=== PATIENT | male | born 1970 | race Caucasian/White ===

== ENCOUNTER 2021-02-03 08:09 | Emergency (ER) | payer OTHER ==
[2021-02-03] MEDS ORDERED: Adacel Vial IM ONE ×2 (08:31→08:55)
[2021-02-03] MEDS ORDERED: Zosyn 3.375 GM Vial 3.375 GM in Sodium Chloride 100ML MINI-BAG PLUS 100 ML IV ONE (08:32)
[2021-02-03] MEDS ORDERED: VANCOMYCIN 2 GRAM/400 ML BAG 2 GM/400 ML PIGGYBACK IV ONE ×2 (08:32→08:54)
--- NOTE | 2021-02-03 08:40 | ERPHSYRPT ---
- History of Present Illness Time Seen by Provider: 02/03/21 08:11 Source: patient Exam Limitations: no limitations Patient Subjective Stated Complaint: Abscess Triage Nursing Assessment: Patient ambulated back to ED and transferred self to bed. Patient A+O X 3. Patient's skin pink, warm and dry. Patient complains of abscess to left mid bosch. Patient states this past he noticed redness and blistering to left mid bosch. Patient states he woke up Tuesday with a raised area on mid bosch with redness. [facility] and given IM and PO atb. Patient states the area is looking worse. Patient has raised area with soft middle noted to left mid bosch. Patient's left lower leg noted to be red and swollen. Physician History: 51 years old male with history of diabetes mellitus presented in the ER with chief complaint of left lower extremity swelling for the last 5 days. Patient reported initially started as a few blisters in the mid bosch area and over the course of couple of days got worse with a raised bump and gradually redness spreading around and now involves the entire left bosch area. Moderate intensity sharp pain with palpation, ambulation and better with being still. No fever or chills reported. Questionable history of spider bite. Was seen outpatient with p.o. and IM antibiotics 3 days ago but symptoms seems to be getting worse. Denies any history of MRSA in the past. Timing/Duration: day(s) (5), constant, gradual onset, worse Quality: painful Severity: moderate Location: extremities Possible Causes: no cause identified Modifying Factors: Improves With: other Associated Symptoms: blisters, rash, swelling/mass/lumps Allergies/Adverse Reactions: No Known Drug Allergies Allergy (Unverified 02/03/21 08:18) Hx Influenza Vaccination/Date Given: No Hx Pneumococcal Vaccination/Date Given: No Immunizations Up to Date: Yes Travel Risk - International Travel Have you traveled outside of the country in past 3 weeks: No - Coronavirus Screening Are you exhibiting any of the following symptoms?: No Close contact with a COVID-19 positive Pt in past 14-21 Days: No - Vaccine Status Have you recieved a Covid-19 vaccination: Yes 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 - Vaccination Dates Date of 2cond Vaccination (if applicable): N/A - Review of Systems Constitutional: No Symptoms Eyes: No Symptoms Ears, Nose, & Throat: No Symptoms Respiratory: No Symptoms Cardiac: No Symptoms Abdominal/Gastrointestinal: No Symptoms Genitourinary Symptoms: No Symptoms Skin: Cellulitis, Induration, Rash, Skin Lesions Neurological: No Symptoms Psychological: No Symptoms Endocrine: No Symptoms Hematologic/Lymphatic: No Symptoms Immunological/Allergic: No Symptoms - Past Medical History Pertinent Past Medical History: Yes Neurological History: No Pertinent History ENT History: No Pertinent History Cardiac History: Hypertension Respiratory History: No Pertinent History Endocrine Medical History: Diabetes Type II, Hypothyroidism Musculoskeletal History: No Pertinent History GI Medical History: No Pertinent History History: No Pertinent History Psycho-Social History: No Pertinent History Male Reproductive Disorders: No Pertinent History - Past Surgical History Past Surgical History: No Neuro Surgical History: No Pertinent History Cardiac: No Pertinent History Respiratory: No Pertinent History Gastrointestinal: No Pertinent History Genitourinary: No Pertinent History Musculoskeletal: No Pertinent History Male Surgical History: No Pertinent History - Social History Smoking Status: Never smoker Exposure to second hand smoke: Yes Drug Use: none Patient Lives Alone: No - Nursing Vital Signs Nursing Vital Signs: Initial Vital Signs Temperature 98.1 F 02/03/21 08:19 Pulse Rate 102 H 02/03/21 08:19 Respiratory Rate 18 02/03/21 08:19 Blood Pressure 167/90 02/03/21 08:19 O2 Sat by Pulse Oximetry 98 02/03/21 08:19 Pain Scale Pain Intensity 5 - Physical Exam General Appearance: no apparent distress, alert Eye Exam: PERRL/EOMI, eyes nml inspection Ears, Nose, Throat Exam: normal ENT inspection, pharynx normal Neck Exam: normal inspection, non-tender, supple, full range of motion Respiratory Exam: normal breath sounds, lungs clear Cardiovascular Exam: regular rate/rhythm, normal heart sounds Gastrointestinal/Abdomen Exam: soft Back Exam: normal inspection, normal range of motion Extremity Exam: swelling (Diffuse swelling left bosch area with raised bump in the middle. Erythema spreading to the calf. Warm and mildly tender to touch. Raised area has positive fluctuation. Distal neurovascular well intact. Does not involve ankle or knee joint.) Neurologic Exam: alert, oriented x 3, cooperative Skin Exam: normal color, rash SpO2 Interpretation: normal SpO2: 98 O2 Delivery: Room Air Procedures - Incision and Drainage Time of Procedure: 10:24 Site: Left bosch Anesthesia: 1% lidocaine w/epi cc's of anesthesia: other (7cc) Blade Size: 11 I & D Procedure: betadine prep, sterile dressing applied, culture obtained, ot her (Gauze) Results: large amount pus Progress: Tolerated procedure very well Ordered Tests: Active Orders 24 hr Category Date Time Status IV Insertion STAT Care 02/03/21 08:31 Active LOWER LEG Stat Exams 02/03/21 09:07 Completed BLOOD CULTURE Stat Lab 02/03/21 08:45 Received CBC W DIFF Stat Lab 02/03/21 08:35 Completed CMP Stat Lab 02/03/21 08:35 Completed Lactic Acid Stat Lab 02/03/21 08:31 Completed Medication Summary Generic Name Dose Route Start Last Admin Trade Name Freq PRN Reason Stop Dose Admin Vancomycin HCl 2 gm in 400 mls @ 133.333 mls/hr 02/03/21 08:32 02/03/21 09:45 Vancomycin 2 Gram/400 Ml Bag IV 02/03/21 11:31 133.333 mls/hr STAT ONE 133.33 mls/hr Administration Sodium Chloride 1,000 mls @ 100 mls/hr 02/03/21 08:45 02/03/21 09:04 Sodium Chloride 0.9% 1000 Ml IV 03/05/21 08:44 100 mls/hr .Q10H MEHRDAD Administration Discontinued Medications Generic Name Dose Route Start Last Admin Trade Name Freq PRN Reason Stop Dose Admin Diphtheria/Tetanus/Acell Pertussis 0.5 ml 02/03/21 08:31 02/03/21 09:08 Adacel Vial IM 02/03/21 08:32 0.5 ml .ONCE ONE Administration Diphtheria/Tetanus/Acell Pertussis Confirm 02/03/21 08:55 Adacel Vial Administered 02/03/21 08:56 Dose 0.5 ml IM .STK-MED ONE Piperacillin Sod/Tazobactam 100 mls @ 200 mls/hr 02/03/21 08:32 02/03/21 09:06 Sod 3.375 gm/ Sodium Chloride IV 02/03/21 09:01 200 mls/hr STAT ONE Administration Vancomycin HCl Confirm 02/03/21 08:54 Vancomycin 2 Gram/400 Ml Bag Administered 02/03/21 08:55 Dose 2 gm in 400 mls @ ud IV .STK-MED ONE Sodium Chloride Confirm 02/03/21 08:56 Sodium Chloride 100ml Mini-Bag Plus Administered 02/03/21 08:57 Dose 100 mls @ ud IV .STK-MED ONE Lidocaine/Epinephrine Confirm 02/03/21 10:04 Xylocaine 1%/Epi 1:[id number] Mdv 20 Ml Administered 02/03/21 10:05 Dose 5 ml .ROUTE .STK-MED ONE Piperacillin Sod/Tazobactam Sod Confirm 02/03/21 08:54 Zosyn 3.375 Gm Vial Administered 02/03/21 08:55 Dose 3.375 gm IV .STK-MED ONE Lab/Rad Data: Laboratory Result Diagrams 02/03/21 08:35 02/03/21 08:35 Laboratory Results 02/03/21 02/03/21 02/03/21 Range/Units 08:35 08:35 08:31 WBC 14.2 H (4.0-10.5) K/mm3 RBC 4.98 (4.1-5.6) M/mm3 Hgb 14.1 (12.5-18.0) gm/dl Hct 44.7 (42-50) % MCV 89.8 (78-100) fl MCH 28.3 (26-32) pg MCHC 31.5 L (32-36) g/dl RDW 14.1 H (11.5-14.0) % Plt Count 265 (150-450) K/mm3 MPV 11.1 H (7.5-11.0) fl Gran % 77.5 H (36.0-66.0) % Eos # (Auto) 0.15 (0-0.5) Absolute Lymphs (auto) 1.79 (1.0-4.6) Absolute Monos (auto) 1.21 (0.0-1.3) Lymphocytes % 12.6 L (24.0-44.0) % Monocytes % 8.5 (0.0-12.0) % Eosinophils % 1.1 (0.00-5.0) % Basophils % 0.3 (0.0-0.4) % Absolute Granulocytes 11.04 H (1.4-6.9) Basophils # 0.04 (0-0.4) Sodium 141 (137-145) mmol/L Potassium 4.2 (3.5-5.1) mmol/L Chloride 104 (98-107) mmol/L Carbon Dioxide 24 (22-30) mmol/L Anion Gap 16.2 H (5-15) MEQ/L BUN 31 H (9-20) mg/dL Creatinine 1.31 H (0.66-1.25) mg/dL Estimated GFR > 60.0 ML/MIN Glucose 171 H (74-106) mg/dL Lactic Acid 1.3 (0.4-2.0) Calcium 9.8 (8.4-10.2) mg/dL Total Bilirubin 0.40 (0.2-1.3) mg/dL AST 26 (17-59) U/L ALT 37 (0-50) U/L Alkaline Phosphatase 166 H (38-126) U/L Serum Total Protein 7.5 (6.3-8.2) g/dL Albumin 4.4 (3.5-5.0) g/dL - Progress Progress: improved, pain not gone completely, re-examined Progress Note: 02/03/21 10:26 51 years old with left lower extremity swelling after possible spider bite and abscess. Patient has white count of 14, lactate of 1.3, blood sugar in 170s and mildly elevated creatinine. Started on fluids and given Zosyn and vancomycin. Discussed with Dr. Honeycutt, recommended I&D which is done. Patient will be kept n.p.o. until Dr. Nava can can see him this afternoon and if needed patient will be taken to the OR for further exploration. Patient would be admitted to medical service with Dr. Kelly. Discussed with : Elyse Alvarado Will see patient in: hospital (observation) Counseled pt/family regarding: lab results, diagnosis, rad results - Departure Departure Disposition: Observation Clinical Impression: Cellulitis and abscess of left leg, DAVID (acute kidney injury) Spider bite Qualifiers: Encounter type: initial encounter Injury intent: accidental or unintentional Qualified Code(s): T63.301A - Toxic effect of unspecified spider venom, accidental (unintentional), initial encounter Condition: Stable Critical Care Time: No Referrals: MARCOS KELLY [Primary Care Provider] -
[2021-02-03] MEDS ORDERED: Sodium Chloride 0.9% 1000 ML 1,000 ML IV SCH (08:45)
[2021-02-03] MEDS ORDERED: Sodium Chloride 0.9% 1000 ML 1,000 ML ONE (08:54)
[2021-02-03] MEDS ORDERED: Zosyn 3.375 GM Vial IV ONE (08:54)
[2021-02-03] MEDS ORDERED: Sodium Chloride 100ML MINI-BAG PLUS 100 ML IV ONE (08:56)
[2021-02-03 08:58] LABS: Absolute Neutrophil Ct (ANC) 11.04 (1.4-6.9); BASOPHIL % 0.3 % (0.0-0.4); Basophil (Absolute #) 0.04 (0-0.4); Eosinophil % 1.1 % (0.00-5.0); Eosinophil (Absolute #) 0.15 (0-0.5); Hematocrit 44.7 % (42-50); Hemoglobin 14.1 gm/dl (12.5-18.0); Lymphocyte (Absolute #) 1.79 (1.0-4.6); Lymphocytes % 12.6 % (24.0-44.0); Mean Cell Volume 89.8 fl (78-100); Mean Corpuscular Hemoglobin 28.3 pg (26-32); Mean Corpuscular Hgb Concent. 31.5 g/dl (32-36); Mean Platelet Volume 11.1 fl (7.5-11.0); Monocyte (Absolute #) 1.21 (0.0-1.3); Monocytes % 8.5 % (0.0-12.0); Neutrophil % 77.5 % (36.0-66.0); Platelet Count 265 K/mm3 (150-450); Red Blood Count 4.98 M/mm3 (4.1-5.6); Red Cell Distribution Width 14.1 % (11.5-14.0); White Blood Count 14.2 K/mm3 (4.0-10.5)
--- NOTE | 2021-02-03 09:11 | XRAY ---
Indication: Pain and swelling. Comparison: None 2 view left lower leg demonstrates diffuse soft tissue swelling/edema, moderate tricompartmental knee degenerative arthropathy, and tiny posterior heel spur. Anterior cutaneous BB designates bug bite. No other bony, articular, or soft tissue abnormalities.
[2021-02-03 09:37] LABS: ALBUMIN 4.4 g/dL (3.5-5.0); ALKALINE PHOSPHATASE 166 U/L (38-126); ANION GAP 16.2 MEQ/L (5-15); BLOOD UREA NITROGEN 31 mg/dL (9-20); CHLORIDE 104 mmol/L (98-107); Calcium 9.8 mg/dL (8.4-10.2); Carbon Dioxide 24 mmol/L (22-30); Creatinine 1 1.31 mg/dL (0.66-1.25); EST GLOMERULAR FILTRATION RATE > 60.0 ML/MIN; Glucose 171 mg/dL (74-106); Potassium 4.2 mmol/L (3.5-5.1); SGOT/AST 26 U/L (17-59); SGPT/ALT 37 U/L (0-50); SODIUM 141 mmol/L (137-145); Total Protein 7.5 g/dL (6.3-8.2)
[2021-02-03] MEDS ORDERED: XYLOCAINE 1%/Epi 1:100000 MDV 20 ML IJ ONE (10:00)
[2021-02-03] MEDS ORDERED: XYLOCAINE 1%/Epi 1:100000 MDV 20 ML ONE (10:04)
[2021-02-03 11:04] LABS: INFLUENZA A NEGATIVE (NEGATIVE); INFLUENZA B NEGATIVE (NEGATIVE); RESPIRATORY SYNCTIAL VIRUS NEGATIVE (Negative)
[2021-02-03] MEDS ORDERED: HUMALOG SQ PRN (11:21)
[2021-02-03] MEDS ORDERED: Zofran 4 MG/2 ML VIAL IV PRN (11:21)
[2021-02-03] MEDS ORDERED: VANCOCIN 1 GM VIAL*** 1 GM in Sodium Chloride 0.9% 250 ML 250 ML IV SCH (11:30)
[2021-02-03] MEDS: PROTONIX 40 MG IV IV SCH (11:42)
[2021-02-03] MEDS: MORPHINE SULFATE 4 MG INJ IV PRN ×3 (11:45→22:47)
[2021-02-03] MEDS: Sodium Chloride 0.9% 1000 ML 1,000 ML IV SCH ×2 (11:47→18:02)
[2021-02-03] MEDS: Zosyn 3.375 GM Vial 3.375 GM in Sodium Chloride 100ML MINI-BAG PLUS 100 ML IV SCH ×2 (15:01→21:30)
[2021-02-03] MEDS ORDERED: MEDICATION INTERVENTION PO SCH ×2 (15:15)
[2021-02-03] MEDS: Naprosyn 500 MG PO SCH (21:30)
[2021-02-03] MEDS ORDERED: BACTRIM DS TABLET PO SCH (22:00)
[2021-02-03] MEDS: VANCOMYCIN 2 GRAM/400 ML BAG 2 GM/400 ML PIGGYBACK IV SCH (22:02)
[2021-02-04] MEDS: Zosyn 3.375 GM Vial 3.375 GM in Sodium Chloride 100ML MINI-BAG PLUS 100 ML IV SCH ×4 (02:18→20:27)
[2021-02-04] MEDS: Sodium Chloride 0.9% 1000 ML 1,000 ML IV SCH ×2 (02:18→14:27)
[2021-02-04 05:45] LABS: Absolute Neutrophil Ct (ANC) 6.35 (1.4-6.9); BASOPHIL % 0.4 % (0.0-0.4); Basophil (Absolute #) 0.04 (0-0.4); Eosinophil % 2.1 % (0.00-5.0); Eosinophil (Absolute #) 0.19 (0-0.5); Hematocrit 40.5 % (42-50); Hemoglobin 12.5 gm/dl (12.5-18.0); Lymphocyte (Absolute #) 1.86 (1.0-4.6); Lymphocytes % 20.1 % (24.0-44.0); Mean Cell Volume 91.8 fl (78-100); Mean Corpuscular Hemoglobin 28.3 pg (26-32); Mean Corpuscular Hgb Concent. 30.9 g/dl (32-36); Mean Platelet Volume 10.7 fl (7.5-11.0); Monocytes % 8.7 % (0.0-12.0); Neutrophil % 68.7 % (36.0-66.0); Platelet Count 239 K/mm3 (150-450); Red Blood Count 4.41 M/mm3 (4.1-5.6); White Blood Count 9.2 K/mm3 (4.0-10.5)
[2021-02-04 06:11] LABS: ALBUMIN 3.6 g/dL (3.5-5.0); ALKALINE PHOSPHATASE 107 U/L (38-126); ANION GAP 11.6 MEQ/L (5-15); BLOOD UREA NITROGEN 22 mg/dL (9-20); CHLORIDE 104 mmol/L (98-107); Calcium 8.5 mg/dL (8.4-10.2); Carbon Dioxide 25 mmol/L (22-30); Creatinine 1 1.28 mg/dL (0.66-1.25); EST GLOMERULAR FILTRATION RATE > 60.0 ML/MIN; Glucose 100 mg/dL (74-106); Potassium 4.4 mmol/L (3.5-5.1); SGOT/AST 24 U/L (17-59); SGPT/ALT 34 U/L (0-50); SODIUM 136 mmol/L (137-145); Total Protein 6.8 g/dL (6.3-8.2)
[2021-02-04] MEDS: Amaryl 2 MG PO SCH (07:52)
[2021-02-04] MEDS: MORPHINE SULFATE 4 MG INJ IV PRN ×3 (07:52→20:30)
--- NOTE | 2021-02-04 07:52 | CONS ---
CONSULT DATE: 02/03/2021 HISTORY: The patient is a 51 year-old gentleman who apparently has had a few days history of some redness, swelling, infection near the anterior aspect of his left lower leg. He was seen at [facility] and was given some oral antibiotics and did not improve. He came to the emergency room earlier. The emergency department physician opened up and drained. He asked that I see him from surgical consult standpoint. He denies methicillin-resistant Staphylococcus aureus in the past. Question whether he got bitten by a spider in the area. He has had some hypothyroidism, hypertension, obesity as well. PAST MEDICAL HISTORY: He has some diabetes, hypertension and hypothyroidism. PAST SURGICAL HISTORY: He had I&D of the lower leg in the emergency room earlier today. MEDICATIONS: He is on some IV Zosyn and Vancomycin currently. Home medicines: Amlodipine, Invokana, Lasix, Glimepiride, lisinopril, Lovastatin, Mobic, K-Dur. ALLERGIES: NKDA. FAMILY HISTORY: Negative in regards to this specific problem. SOCIAL HISTORY: He denies smoking. REVIEW OF SYSTEMS: Fourteen systems reviewed pertinent for as noted above. No chest pain or palpitations. Other systems were negative or noncontributory as above and per preadmission questionnaire. He does have multiple tattoos. LAB DATA AND TESTS: His white count is 14.2. PHYSICAL EXAMINATION: GENERAL: No acute distress. HEENT: Sclera nonicteric. NECK: No JVD. CHEST: Equal excursion, nonlabored breathing. SKIN: Multiple tattoos. CVS: Regular rhythm and pulse. ABDOMEN: Soft, nondistended. EXTREMITIES: He has bandage where the emergency room widely opened this lower leg wound. He has got a little bit of surrounding cellulitis around there but the wound is widely open with some Betadine packing. No need for any emergent general surgical intervention necessary at this point. He has an ankle monitoring device on his opposite ankle. NEURO: Alert, moving extremities grossly symmetrically. PSYCH: Appropriate mood and affect. IMPRESSION: Cellulitis and abscess. The patient relates to spider bite. He does have diabetes. Glucose was 171 earlier. He has had this drained per the emergency room physician. At this time he does not need any emergent surgical intervention necessary at this time. I feel he needs to continue IV antibiotics, medical management. One of our partners will re-evaluate tomorrow but at this time no general surgery necessary at this time. Continue normal saline wet to dry with dressing changes tomorrow.
[2021-02-04] MEDS: NORVASC 5 MG PO SCH (09:16)
[2021-02-04] MEDS: Zocor 10MG PO SCH (09:17)
[2021-02-04] MEDS: Klor Con 10 MEQ PO SCH (09:17)
[2021-02-04] MEDS: ENOXAPARIN SODIUM SQ SCH (09:17)
[2021-02-04] MEDS: LASIX 20 MG PO SCH (09:17)
[2021-02-04] MEDS: SYNTHROID 25 MCG PO SCH (09:17)
[2021-02-04] MEDS: Naprosyn 500 MG PO SCH ×2 (09:17→21:28)
[2021-02-04] MEDS: Zestril 20 MG PO SCH (09:17)
[2021-02-04] MEDS: PROTONIX 40 MG IV IV SCH (09:17)
[2021-02-04] MEDS ORDERED: NON-FORMULARY ITEM (Amlodipine Besylate [Amlodipine Besylate] 10 MG) PO SCH (10:00)
[2021-02-04] MEDS ORDERED: NON-FORMULARY ITEM (Lisinopril [Lisinopril] 40 MG) PO SCH (10:00)
[2021-02-04] MEDS ORDERED: NON-FORMULARY ITEM (Lovastatin [Lovastatin] 20 MG) PO SCH (10:00)
[2021-02-04] MEDS ORDERED: NON-FORMULARY ITEM (Glimepiride [Glimepiride] 1 MG) PO SCH (10:00)
[2021-02-04] MEDS ORDERED: NON-FORMULARY ITEM (Potassium Chloride [K-Dur] 20 MEQ) PO SCH (10:00)
[2021-02-04] MEDS ORDERED: PHENTERMINE HCL 37.5 MG PO SCH (10:00)
[2021-02-04] MEDS ORDERED: NON-FORMULARY ITEM (Canagliflozin [Invokana] 100 MG) PO SCH (10:00)
[2021-02-04] MEDS: VANCOMYCIN 2 GRAM/400 ML BAG 2 GM/400 ML PIGGYBACK IV SCH ×2 (10:07→21:28)
[2021-02-05] MEDS: MORPHINE SULFATE 4 MG INJ IV PRN ×4 (00:37→17:02)
[2021-02-05] MEDS: Zosyn 3.375 GM Vial 3.375 GM in Sodium Chloride 100ML MINI-BAG PLUS 100 ML IV SCH ×2 (03:27→09:48)
[2021-02-05] MEDS: Sodium Chloride 0.9% 1000 ML 1,000 ML IV SCH ×3 (07:06→20:30)
[2021-02-05] MEDS: Amaryl 2 MG PO SCH (08:18)
--- NOTE | 2021-02-05 08:49 | PCM.HP ---
History of Present Illness - Chief Complaint Chief Complaint: Abcess left leg/Cellulitis Date: 02/04/21 History of Present Illness: is a 51 year old male. Pt. presented to ER on 02/03/21 with increasing pain, redness and swelling of the left lower leg just lateral to the tibia, was a fluctuant area c/w abscess. Pt. noted onset of this 5 days prior with progressively worsening of the symptoms. Pt. was seen in [facility] and started on appropriate antibiotics 2 days prior to presentation to the ER. Pt. had not noted any fevers and complains of nothing besides the pain and swelling in the left lower leg. - Review of Systems Constitutional: No Fever, No Chills Eyes: No Symptoms Ears, Nose, & Throat: No Symptoms Respiratory: No Cough, No Short Of Breath Cardiac: No Chest Pain, No Edema, No Syncope Abdominal/Gastrointestinal: No Abdominal Pain, No Nausea, No Vomiting, No Diarrhea Genitourinary Symptoms: No Dysuria Musculoskeletal: No Back Pain, No Neck Pain Skin: Cellulitis, Skin Lesions (nodular area adjacent to the mid tibia), No Rash Neurological: No Dizziness, No Focal Weakness, No Sensory Changes Psychological: No Symptoms Endocrine: No Symptoms Hematologic/Lymphatic: No Symptoms Immunological/Allergic: No Symptoms Medications & Allergies Home Medications: Home Medication List Amlodipine Besylate 10 mg PO DAILY 02/03/21 [History Confirmed 02/03/21] Canagliflozin [Invokana] 100 mg PO DAILY 02/03/21 [History Confirmed 02/03/21] Furosemide 20 mg [Lasix 20 mg] 20 mg PO DAILY 02/03/21 [History Confirmed 02/03/21] Glimepiride 1 mg PO DAILY 02/03/21 [History Confirmed 02/03/21] Levothyroxine Sodium [Euthyrox] 25 mcg PO DAILY 02/03/21 [History Confirmed 02/03/21] Lisinopril 40 mg PO DAILY 02/03/21 [History Confirmed 02/03/21] Lovastatin 20 mg PO DAILY 02/03/21 [History Confirmed 02/03/21] Naproxen 500 mg [Naprosyn 500 MG] 500 mg PO BID 02/03/21 [History Confirmed 02/03/21] Phentermine HCl 37.5 mg PO DAILY 02/03/21 [History Confirmed 02/03/21] Potassium Chloride [K-Dur] 20 meq PO DAILY 02/03/21 [History Confirmed 02/03/21] Smz/Tmp Ds Tablet [Bactrim Ds Tablet] 1 tab PO Q12H 02/03/21 [History Confirmed 02/03/21] Allergies/Adverse Reactions: Allergies Allergy/AdvReac Type Severity Reaction Status Date / Time No Known Drug Allergies Allergy Verified 02/03/21 12:09 - Past Medical History Past Medical History: Yes Neurological History: No Pertinent History ENT History: No Pertinent History Cardiac History: High Cholesterol, Hypertension Respiratory History: No Pertinent History Endocrine Medical History: Diabetes Type II, Hypothyroidism Musculoskelatal History: Arthritis GI Medical History: No Pertinent History History: No Pertinent History Pyscho-Social History: No Pertinent History Male Reproductive Disorders: No Pertinent History - Past Surgical History Past Surgical History: No Neuro Surgical History: No Pertinent History Cardiac History: No Pertinent History Respiratory Surgery: No Pertinent History GI Surgical History: No Pertinent History Genitourinary Surgical Hx: No Pertinent History Musculskeletal Surgical Hx: No Pertinent History Male Surgical History: No Pertinent History - Social History Smoking Status: Former smoker Exposure to second hand smoke: No Alcohol: Occasionally Drug Use: none - Physical Exam Vital Signs: Vital Signs - 24 hr Temp Pulse Resp BP Pulse Ox 02/05/21 07:41 97.6 F 71 20 153/81 94 L 02/05/21 00:00 98.3 F 79 20 137/80 94 L 02/04/21 19:44 98.1 F 78 19 143/67 95 02/04/21 16:00 98.4 F 81 20 122/67 98 02/04/21 12:00 98.0 F 69 18 127/64 96 General Appearance: no apparent distress, alert Neurologic Exam: alert, oriented x 3, cooperative, normal mood/affect, nml cerebellar function, nml station & gait, sensation nml, No motor deficits Eye Exam: PERRL/EOMI, eyes nml inspection Ears, Nose, Throat Exam: normal ENT inspection, TMs normal, pharynx normal, moist mucous membranes Neck Exam: normal inspection, non-tender, supple, full range of motion Respiratory Exam: normal breath sounds, lungs clear, No respiratory distress Cardiovascular Exam: regular rate/rhythm, normal heart sounds, normal peripheral pulses Gastrointestinal/Abdomen Exam: soft, normal bowel sounds, No tenderness, No mass Back Exam: normal inspection, normal range of motion, No CVA tenderness, No vertebral tenderness Extremity Exam: normal inspection, normal range of motion, inflammation, swelling, tenderness (inflammation, swelling, tenderness all noted on anterior left lower leg, pt. has had this area Incised in the ER and purulent drainage sent to lab for c/s from the left lower leg abscess.) Skin Exam: normal color, warm, dry, No rash Wound Assessment: Skin/Wound Assessment Wound/Incision Assessment Start: 02/03/21 11:22 Text: Status: Active Freq: Q6H Protocol: Document 02/05/21 08:00 SHEILA (Rec: 02/05/21 08:26 SHEILA [id number]) Wound/Incision Assessment Left bosch Wound Assessment Shift Assessment Wound Type Incision Wound Stage Non Pressure Wound Dressing Status Dry & Intact Drainage Amount None General Appearance Reddened Packing Type Gauze Pads Primary Dressing Gauze Pads Secondary Dressing GAUZE WRAP AND CITLALI BANDAGE Lymphatic Exam: No adenopathy Results - Labs Lab/Micro Results: Lab Results-Last 24 Hours 02/04/21 02/04/21 02/04/21 Range/Units 11:29 16:00 20:31 POC Glucometer 145 H 131 H 130 H (74 to 106) mg/dL 02/05/21 Range/Units 06:50 POC Glucometer 101 (74 to 106) mg/dL Microbiology 02/03/21 10:33 Wound Culture - Final Leg - Left Lower Staphylococcus Aureus 02/03/21 08:35 Blood Culture - Preliminary Blood NO GROWTH TO DATE 02/03/21 08:45 Blood Culture - Preliminary Blood NO GROWTH TO DATE Accuchecks Date 02/05/21 Date 02/03/21 Time 06:50 Time 22:00 - Radiology Impressions Radiology Exams & Impressions: Radiology Procedures Category Date Time Status BONE THREE PHASE [NUCMED] Urgent Exams 02/05/21 08:00 Ordered LOWER LEG Stat Exams 02/03/21 09:07 Completed Assessment/Plan (1) Abscess Current Visit: Yes Status: Acute Assessment & Plan: I and D performed in ER wet to dry dressing changes will be initiated, along with iv antibiotics Code(s): L02.91 - CUTANEOUS ABSCESS, UNSPECIFIED (2) Cellulitis and abscess of left leg Current Visit: Yes Status: Acute Assessment & Plan: IV antibiotics, await results of c and S Code(s): L03.116 - CELLULITIS OF LEFT LOWER LIMB; L02.416 - CUTANEOUS ABSCESS OF LEFT LOWER LIMB
--- NOTE | 2021-02-05 08:55 | PCM.NOTE ---
Date and Time: 02/05/21 0850 Subjective Assessment: Pt. notes less pain and swelling today, feeling much better, longer times between doses of pain medications. - Review of Systems Constitutional: No Fever, No Chills Eyes: No Symptoms Ears, Nose, & Throat: No Symptoms Respiratory: No Cough, No Short Of Breath Cardiac: No Chest Pain, No Edema, No Syncope Abdominal/Gastrointestinal: No Abdominal Pain, No Nausea, No Vomiting, No Diarrhea Genitourinary Symptoms: No Dysuria Musculoskeletal: No Back Pain, No Neck Pain Skin: Cellulitis Neurological: No Dizziness, No Focal Weakness, No Sensory Changes Psychological: No Symptoms Endocrine: No Symptoms Hematologic/Lymphatic: No Symptoms Immunological/Allergic: No Symptoms Objective Exam General Appearance: no apparent distress Neurologic Exam: alert, cooperative Skin Exam: normal color, warm, dry (open area of lower leg with a decrease in drainage, less redness which is slowly receeding and noted less swelling, will continue dvt prophylaxis, pt. is able to ambulate to bathroom without difficulty) Wound Assessment: Skin/Wound Assessment Wound/Incision Assessment Start: 02/03/21 11:22 Text: Status: Active Freq: Q6H Protocol: Document 02/05/21 08:00 SHEILA (Rec: 02/05/21 08:26 SHEILA [id number]) Wound/Incision Assessment Left bosch Wound Assessment Shift Assessment Wound Type Incision Wound Stage Non Pressure Wound Dressing Status Dry & Intact Drainage Amount None General Appearance Reddened Packing Type Gauze Pads Primary Dressing Gauze Pads Secondary Dressing GAUZE WRAP AND CITLALI BANDAGE Eye Exam: EOMI Ears, Nose, Throat Exam: normal ENT inspection, moist mucous membranes Neck Exam: normal inspection, non-tender Respiratory Exam: normal breath sounds, lungs clear, No chest tenderness Cardiovascular Exam: regular rate/rhythm, normal heart sounds, normal peripheral pulses Gastrointestinal/Abdomen Exam: soft, No tenderness, No distention Extremity Exam: swelling (swelling is still noted although less in the left lower leg related to cellulitis) OBJECTIVE DATA Vital Signs: Vital Signs - 24 hr Temp Pulse Resp BP Pulse Ox 02/05/21 07:41 97.6 F 71 20 153/81 94 L 02/05/21 00:00 98.3 F 79 20 137/80 94 L 02/04/21 19:44 98.1 F 78 19 143/67 95 02/04/21 16:00 98.4 F 81 20 122/67 98 02/04/21 12:00 98.0 F 69 18 127/64 96 Pain Assessment - Last Documented Pain Intensity 2 Pain Scale Used 0-10 Pain Scale Intake and Output: Intake & Output 02/02/21 02/03/21 02/04/21 02/05/21 11:59 11:59 11:59 11:59 Intake Total 3624 4044 Balance 3624 4044 Weight 175.7 kg 176 kg 177.5 kg Lab Results: Lab Results-Last 24 Hours 02/04/21 02/04/21 02/04/21 Range/Units 11:29 16:00 20:31 POC Glucometer 145 H 131 H 130 H (74 to 106) mg/dL 02/05/21 Range/Units 06:50 POC Glucometer 101 (74 to 106) mg/dL Radiology Exams: Radiology Procedures Category Date Time Status BONE THREE PHASE [NUCMED] Urgent Exams 02/05/21 08:00 Ordered LOWER LEG Stat Exams 02/03/21 09:07 Completed Assessment/Plan (1) Abscess Current Visit: Yes Status: Acute Assessment & Plan: wet to dry dressing changes will be changed to daily in anticipation of wound care daily upon d/c Code(s): L02.91 - CUTANEOUS ABSCESS, UNSPECIFIED (2) Cellulitis and abscess of left leg Current Visit: Yes Status: Acute Assessment & Plan: C and S back showing sensitive to Levaquin, will d/c zosyn now and begin Levaquin and re-evaluate in the morning. Code(s): L03.116 - CELLULITIS OF LEFT LOWER LIMB; L02.416 - CUTANEOUS ABSCESS OF LEFT LOWER LIMB
[2021-02-05] MEDS ORDERED: TROUGH DRUG LEVELS IJ ONE (09:30)
[2021-02-05] MEDS: LASIX 20 MG PO SCH (09:36)
[2021-02-05] MEDS: PROTONIX 40 MG IV IV SCH (09:36)
[2021-02-05] MEDS: Naprosyn 500 MG PO SCH ×2 (09:36→21:15)
[2021-02-05] MEDS: NORVASC 5 MG PO SCH (09:36)
[2021-02-05] MEDS: SYNTHROID 25 MCG PO SCH (09:36)
[2021-02-05] MEDS: LEVOFLOXACIN 750MG/150ML D5W 750 MG/150 ML BAG IV SCH (09:36)
[2021-02-05] MEDS: Zestril 20 MG PO SCH (09:36)
[2021-02-05] MEDS: ENOXAPARIN SODIUM SQ SCH (09:36)
[2021-02-05] MEDS: Zocor 10MG PO SCH (09:36)
[2021-02-05] MEDS: Klor Con 10 MEQ PO SCH (09:36)
[2021-02-05] MEDS: VANCOMYCIN 2 GRAM/400 ML BAG 2 GM/400 ML PIGGYBACK IV SCH ×2 (12:03→21:15)
--- NOTE | 2021-02-05 14:17 | XRAY ---
Indication: Left lower leg anterior open wound with erythema and swelling. Staphylococcus infection. History diabetes and hypertension. Patient received 29.2 mCi technetium 99 MDP. Immediate anterior/posterior flow images of both lower legs obtained. Corresponding anterior/posterior blood pool images obtained. Delayed images obtained in the anterior, posterior, and lateral planes. Blood flow and blood pool images demonstrates subtle asymmetric increased radiopharmaceutical activity to the left mid lower leg. Delayed images demonstrates moderate osteo-degenerative activity in both knees. No focal increased radiopharmaceutical activity in either lower leg to suggest osteomyelitis. Impression: 1. Increased blood flow and blood pool radiopharmaceutical activity localized to the left mid leg favoring cellulitis. 2. Nuclear medicine three-phase bone scan study negative for osteomyelitis. 3. Incidental bilateral knee osteoarthritis.
[2021-02-06] MEDS: MORPHINE SULFATE 4 MG INJ IV PRN ×2 (03:15→07:15)
[2021-02-06 05:22] LABS: ANION GAP 11.6 MEQ/L (5-15); BLOOD UREA NITROGEN 17 mg/dL (9-20); CHLORIDE 105 mmol/L (98-107); Calcium 8.8 mg/dL (8.4-10.2); Carbon Dioxide 26 mmol/L (22-30); Creatinine 1 1.02 mg/dL (0.66-1.25); EST GLOMERULAR FILTRATION RATE > 60.0 ML/MIN; Glucose 103 mg/dL (74-106); Potassium 4.3 mmol/L (3.5-5.1); SODIUM 138 mmol/L (137-145)
[2021-02-06 05:25] LABS: Hematocrit 41.7 % (42-50); Hemoglobin 13.1 gm/dl (12.5-18.0); Mean Cell Volume 89.7 fl (78-100); Mean Corpuscular Hemoglobin 28.2 pg (26-32); Mean Corpuscular Hgb Concent. 31.4 g/dl (32-36); Platelet Count 255 K/mm3 (150-450); Red Blood Count 4.65 M/mm3 (4.1-5.6); Red Cell Distribution Width 13.7 % (11.5-14.0); White Blood Count 7.6 K/mm3 (4.0-10.5)
[2021-02-06] MEDS: Amaryl 2 MG PO SCH (07:47)
[2021-02-06] MEDS: LEVOFLOXACIN 750MG/150ML D5W 750 MG/150 ML BAG IV SCH (08:57)
--- NOTE | 2021-02-06 08:57 | PCM.DS ---
Discharge Summary Date of Admission: 02/03/21 11:20 Date of Discharge: 02/06/2021 Admitting Physician: MARCOS KELLY Consults: Consults on Case 02/03/21 14:53 Consult Surgery ROUTINE Primary Care Provider: MARCOS KELLY Allergies Allergies No Known Drug Allergies Allergy (Verified 02/03/21 12:09) Hospital Summary - Hospital Course Hospital Course: Pt. admitted to the hospital on Tuesday, 02/03 and started on iv zosyn and vancomycin. Pt. with less swelling and decreased redness the following am. Wound was opened in the ER with cultures returning for staph aureus growth. Pt. sensitivity noted to most of the abx including the one he was started on in [facility]. Pt. has been getting wet to dry dressing changes with continued improvement in the swelling of the region although the redness has stayed about the same since day 1 of admission. Pt. notes feeling well and ready for discharge. Pt. was changed to iv levoquin based on the c and s that returned . Pt. will be discharged with training on dressing changes and in house dressing changes to be done M, W, F, he will follow up with me on 02/17, sooner if needed. - Vitals & Intake/Output Vital Signs: Vital Signs Temperature 98.3 F 02/06/21 07:47 Pulse Rate 65 02/06/21 07:47 Respiratory Rate 20 02/06/21 07:47 Blood Pressure 124/58 02/06/21 07:47 O2 Sat by Pulse Oximetry 97 02/06/21 07:47 Intake & Output: Intake & Output 02/03/21 02/04/21 02/05/21 02/06/21 11:59 11:59 11:59 11:59 Intake Total 3624 4284 4053 Balance 3624 4284 4055 Weight 175.7 kg 176 kg 177.5 kg 176.4 kg - Lab Result Diagrams: 02/06/21 04:35 02/06/21 04:35 Lab Results-Last 24 Hrs: Lab Results-Last 24 Hours 02/05/21 02/05/21 02/05/21 Range/Units 09:37 11:23 16:25 WBC (4.0-10.5) K/mm3 RBC (4.1-5.6) M/mm3 Hgb (12.5-18.0) gm/dl Hct (42-50) % MCV (78-100) fl MCH (26-32) pg MCHC (32-36) g/dl RDW (11.5-14.0) % Plt Count (150-450) K/mm3 MPV (7.5-11.0) fl Sodium (137-145) mmol/L Potassium (3.5-5.1) mmol/L Chloride (98-107) mmol/L Carbon Dioxide (22-30) mmol/L Anion Gap (5-15) MEQ/L BUN (9-20) mg/dL Creatinine (0.66-1.25) mg/dL Estimated GFR ML/MIN Glucose (74-106) mg/dL POC Glucometer 89 97 (74 to 106) mg/dL Calcium (8.4-10.2) mg/dL Vancomycin Trough 13.04 (10-20) ug/mL 02/05/21 02/06/21 02/06/21 Range/Units 20:08 04:35 04:35 WBC 7.6 (4.0-10.5) K/mm3 RBC 4.65 (4.1-5.6) M/mm3 Hgb 13.1 (12.5-18.0) gm/dl Hct 41.7 L (42-50) % MCV 89.7 (78-100) fl MCH 28.2 (26-32) pg MCHC 31.4 L (32-36) g/dl RDW 13.7 (11.5-14.0) % Plt Count 255 (150-450) K/mm3 MPV 10.0 (7.5-11.0) fl Sodium 138 (137-145) mmol/L Potassium 4.3 (3.5-5.1) mmol/L Chloride 105 (98-107) mmol/L Carbon Dioxide 26 (22-30) mmol/L Anion Gap 11.6 (5-15) MEQ/L BUN 17 (9-20) mg/dL Creatinine 1.02 (0.66-1.25) mg/dL Estimated GFR > 60.0 ML/MIN Glucose 103 (74-106) mg/dL POC Glucometer 174 H (74 to 106) mg/dL Calcium 8.8 (8.4-10.2) mg/dL Vancomycin Trough (10-20) ug/mL 02/06/21 Range/Units 06:45 WBC (4.0-10.5) K/mm3 RBC (4.1-5.6) M/mm3 Hgb (12.5-18.0) gm/dl Hct (42-50) % MCV (78-100) fl MCH (26-32) pg MCHC (32-36) g/dl RDW (11.5-14.0) % Plt Count (150-450) K/mm3 MPV (7.5-11.0) fl Sodium (137-145) mmol/L Potassium (3.5-5.1) mmol/L Chloride (98-107) mmol/L Carbon Dioxide (22-30) mmol/L Anion Gap (5-15) MEQ/L BUN (9-20) mg/dL Creatinine (0.66-1.25) mg/dL Estimated GFR ML/MIN Glucose (74-106) mg/dL POC Glucometer 96 (74 to 106) mg/dL Calcium (8.4-10.2) mg/dL Vancomycin Trough (10-20) ug/mL Micro Results-Entire Visit: Microbiology 02/03/21 10:33 Wound Culture - Final Leg - Left Lower Staphylococcus Aureus 02/03/21 08:35 Blood Culture - Preliminary Blood NO GROWTH TO DATE 02/03/21 08:45 Blood Culture - Preliminary Blood NO GROWTH TO DATE Accuchecks Date 02/06/21 Date 02/05/21 Date 02/05/21 Date 02/05/21 Time 07:30 Time 22:00 Time 16:25 Time 11:23 - Radiology Exams Ordered Rad Exams-Entire Visit: Radiology Procedures Category Date Time Status BONE THREE PHASE [NUCMED] Urgent Exams 02/05/21 08:00 Completed Discharge Exam General Appearance: no apparent distress, alert Neurologic Exam: alert, oriented x 3, cooperative, normal mood/affect, nml cerebellar function, sensation nml, No motor deficits Eye Exam: PERRL, EOMI, eyes nml inspection Ears, Nose, Throat Exam: normal ENT inspection, pharynx normal, moist mucous membranes Neck Exam: normal inspection, non-tender, supple, full range of motion Respiratory Exam: normal breath sounds, lungs clear, No respiratory distress Cardiovascular Exam: regular rate/rhythm, normal heart sounds Gastrointestinal/Abdomen Exam: soft, No tenderness, No mass Male Genitalia Exam: deferred Rectal Exam: deferred Back Exam: normal inspection, normal range of motion, No CVA tenderness, No vertebral tenderness Extremity Exam: swelling, tenderness, No calf tenderness Skin Exam: warm, dry (cellulitis persist in the left lower leg with open area from I and D) Wound Assessment: Skin/Wound Assessment Wound/Incision Assessment Start: 02/03/21 11:22 Text: Status: Active Freq: Q6H Protocol: Document 02/06/21 08:00 DS (Rec: 02/06/21 08:25 DS [id number]) Wound/Incision Assessment Left bosch Wound Assessment Shift Assessment Wound Type Incision Wound Stage Non Pressure Wound Dressing Status Dry & Intact Packing Type Gauze Pads Primary Dressing Gauze Pads Secondary Dressing GAUZE WRAP AND CITLALI BANDAGE Comment dressing C/D/I, no evidence of any drainage on bandaging Wound Photo Photo Taken No Final Diagnosis/Problem List - Final Discharge Diagnosis/Problem (1) Abscess Current Visit: Yes Status: Acute Assessment & Plan: drained in ER, cultures show sensitivity to Levaquin Code(s): L02.91 - CUTANEOUS ABSCESS, UNSPECIFIED (2) Cellulitis and abscess of left leg Current Visit: Yes Status: Acute Assessment & Plan: continue op po levaquin for 10 days Code(s): L03.116 - CELLULITIS OF LEFT LOWER LIMB; L02.416 - CUTANEOUS ABSCESS OF LEFT LOWER LIMB - Discharge Discharge Date: 02/06/21 Disposition: Home, Self-Care Condition: Stable Prescriptions: No Action Potassium Chloride [K-Dur] 20 meq PO DAILY Lovastatin 20 mg PO DAILY Lisinopril 40 mg PO DAILY Glimepiride 1 mg PO DAILY Furosemide 20 mg [Lasix 20 mg] 20 mg PO DAILY Canagliflozin [Invokana] 100 mg PO DAILY Amlodipine Besylate 10 mg PO DAILY Smz/Tmp Ds Tablet [Bactrim Ds Tablet] 1 tab PO Q12H Phentermine HCl 37.5 mg PO DAILY Naproxen 500 mg [Naprosyn 500 MG] 500 mg PO BID Levothyroxine Sodium [Euthyrox] 25 mcg PO DAILY Outpatient Orders: Physical Therapy Eval & Treat Time Frame: 02/06/21, Facility: [facility], Location: PHYSICAL THERAPY Follow up with: MARCOS KELLY [Primary Care Provider] - 02/17/21 3:15 pm
[2021-02-06] MEDS: ENOXAPARIN SODIUM SQ SCH (09:01)
[2021-02-06] MEDS: Zestril 20 MG PO SCH (09:02)
[2021-02-06] MEDS: SYNTHROID 25 MCG PO SCH (09:02)
[2021-02-06] MEDS: Naprosyn 500 MG PO SCH (09:03)
[2021-02-06] MEDS: Klor Con 10 MEQ PO SCH (09:03)
[2021-02-06] MEDS: NORVASC 5 MG PO SCH (09:03)
[2021-02-06] MEDS: Zocor 10MG PO SCH (09:03)
[2021-02-06] MEDS: LASIX 20 MG PO SCH (09:03)
[2021-02-06] MEDS: PROTONIX 40 MG IV IV SCH (09:04)
[2021-02-06] MEDS: VANCOMYCIN 2 GRAM/400 ML BAG 2 GM/400 ML PIGGYBACK IV SCH (10:38)
[2021-02-06] MEDS ORDERED: MOTRIN 600 MG PO PRN (10:43)
[2021-02-06 11:50] VITALS: BP 117/73; PULSE 64; O2SAT 98
== END 2021-02-06 13:10 | disposition home or self-care (01) ==
LOC: ED 08:09 → MED SURG 11:20
PROVIDERS: ADMIT Family Medicine; ATTEND Family Medicine
DX: N17.9 Acute kidney failure, unspecified (principal); L03.116 Cellulitis of left lower limb; L02.416 Cutaneous abscess of left lower limb; T63.301A Toxic effect of unspecified spider venom, accidental (unintentional), initial encounter
CPT/HCPCS: 0241U; 10060; 29581; 36000; 36415; 73590; 78315; 80048; 80053; 80202; 82947; 83605; 85025; 85027; 87040; 87070; 87077; 87186; 90471; 96360; 96361; 96365; 96367; 96372; 99285; A9503; G0378; 90715; J1650; J1817; J1956; J2270; A9270-GY; J3370

== ENCOUNTER 2022-07-03 01:12 | Emergency (ER) | payer OTHER ==
[2022-07-03] MEDS ORDERED: MORPHINE SULFATE 4 MG INJ IM ONE (01:33)
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
[2022-07-03] MEDS ORDERED: Hydromorphone 1 mg/ml Injection IM ONE (01:50)
[2022-07-03] MEDS ORDERED: OXYCODONE-ACETAMINOPHEN 10-325 PO STA (01:51)
[2022-07-03] MEDS ORDERED: PERCOCET TABLET 5/325MG ONE (02:05)
[2022-07-03] MEDS ORDERED: Hydromorphone 1 mg/ml Injection ONE (02:05)
[2022-07-03] MEDS ORDERED: OXYCODONE-ACETAMINOPHEN 10-325 ONE (02:13)
[2022-07-03 03:27] VITALS: BP 145/81; PULSE 84
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
[2022-07-04 14:25] VITALS: O2SAT 96
== END 2022-07-03 03:10 | disposition home or self-care (01) ==
LOC: ED 01:12
DX: S82.851A Displaced trimalleolar fracture of right lower leg, initial encounter for closed fracture (principal); V86.56XA Driver of dirt bike or motor/cross bike injured in nontraffic accident, initial encounter; M25.571 Pain in right ankle and joints of right foot; I10 Essential (primary) hypertension; E11.9 Type 2 diabetes mellitus without complications; Z79.84 Long term (current) use of oral hypoglycemic drugs; Z79.899 Other long term (current) drug therapy; Z79.891 Long term (current) use of opiate analgesic
CPT/HCPCS: 29515; 73600; 73620; 96372; 99283; J1170; A9270-GY

== ENCOUNTER 2022-07-09 06:02 | Day surgery (SDC) | payer OTHER ==
[2022-07-09] MEDS ORDERED: Lactated Ringers 1,000 ML IV SCH (07:00)
[2022-07-09] MEDS ORDERED: CEFAZOLIN 2 GM-D5W BAG** 2 GM/50 ML ML IV ONE (07:16)
[2022-07-09] MEDS ORDERED: CEFAZOLIN 2 GM-D5W BAG** 2 GM/50 ML ML IV SCH (07:30)
[2022-07-09 07:58] LABS: ALBUMIN 4.2 g/dL (3.5-5.0); ALKALINE PHOSPHATASE 128 U/L (38-126); ANION GAP 10.5 MEQ/L (5-15); BLOOD UREA NITROGEN 36 mg/dL (9-20); CHLORIDE 108 mmol/L (98-107); Calcium 9.3 mg/dL (8.4-10.2); Carbon Dioxide 27 mmol/L (22-30); Creatinine 1 1.21 mg/dL (0.66-1.25); EST GLOMERULAR FILTRATION RATE > 60.0 ML/MIN; Glucose 124 mg/dL (74-106); Potassium 4.8 mmol/L (3.5-5.1); SGOT/AST 63 U/L (17-59); SGPT/ALT 55 U/L (0-50); SODIUM 141 mmol/L (137-145)
[2022-07-09] MEDS ORDERED: Sodium Chloride 0.9% 1000 ML 1,000 ML ONE (10:17)
--- NOTE | 2022-07-09 11:51 | XRAY ---
Indication: Right ankle ORIF surgery. Intraoperative fluoroscopy provided for 2 minutes 25 seconds. 4 digital spot images submitted for interpretation ultimately demonstrates lateral fixation plate/screws fixating lateral malleolus fracture in good apposition/alignment. Correlate with intraoperative findings/report.
--- NOTE | 2022-07-09 12:11 | XRAY ---
2 minutes and 25 seconds fluoroscopy time in surgery for ankle reduction.
--- NOTE | 2022-07-09 12:43 | XRAY ---
Indication: Postop exam. Comparison: July 03, 2022 3 view right ankle demonstrates new intact fixation plate/screws fixating lateral malleolus fracture in good apposition/alignment with new overlying splint material. Talotibial articulation is now anatomic. Remaining ankle unremarkable again with incidental posterior heel spur.
[2022-07-09 13:41] VITALS: O2SAT 95
[2022-07-09 14:08] VITALS: BP 142/82; PULSE 89
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
== END 2022-07-09 15:00 | disposition home or self-care (01) ==
LOC: SDC 06:02
PROVIDERS: ATTEND Podiatrist Foot & Ankle Surgery
DX: S82.851A Displaced trimalleolar fracture of right lower leg, initial encounter for closed fracture (principal); M25.371 Other instability, right ankle; E11.9 Type 2 diabetes mellitus without complications; E66.9 Obesity, unspecified; I73.9 Peripheral vascular disease, unspecified
CPT/HCPCS: 01480; 27822; 27829; 36415; 64450; 73610; 76000; 76937; 76942; 80053; 82947; 93005; 97161; C1713; J0690

== ENCOUNTER 2024-09-11 13:17 | Emergency (ER) | payer OTHER ==
--- NOTE | 2024-09-11 13:21 | ERPHSYRPT ---
- History of Present Illness Time Seen by Provider: 09/11/24 13:21 Source: patient, police Exam Limitations: no limitations Physician History: This is a morbidly obese 54-year-old white male patient of Dr. Kelly who also happens to be incarcerated at the [facility] [place]. He was brought to the emergency department by law enforcement. Patient has a history of DVTs in the past and was on Eliquis for approximately 1 year. He was told to stay on a baby aspirin a day thereafter. Approximately 2 months ago, he states he stopped taking a baby aspirin. He has had pain in the left lower extremity for approximately 1 week. A venous Doppler ultrasound was performed on his left lower extremity this morning which reveals a deep venous thrombosis. Patient is sent here to start on anticoagulation therapy. Patient has a history of hypertension, hypothyroidism, diabetes, hyperlipidemia and arthritis. Patient denies chest pain. Patient denies shortness of breath. Patient denies cough. I reviewed the lower extremity venous duplex sonographers observation which states left leg appears positive for DVT at this time. Patient states he is not taking aspirin and he is not taking naproxen at this time. Timing/Duration: week(s) (1) Severity: mild Associated Symptoms: denies symptoms Allergies/Adverse Reactions: No Known Drug Allergies Allergy (Verified 09/11/24 13:33) Home Medications: Amlodipine Besylate 10 mg PO DAILY 02/03/21 [History] Canagliflozin [Invokana] 100 mg PO DAILY 02/03/21 [History] Furosemide 20 mg [Lasix 20 mg] 20 mg PO DAILY 02/03/21 [History] Glimepiride 1 mg PO DAILY 02/03/21 [History] Levothyroxine Sodium [Euthyrox] 25 mcg PO DAILY 02/03/21 [History] Lovastatin 20 mg PO DAILY 02/03/21 [History] Naproxen 500 mg [Naprosyn 500 MG] 500 mg PO BID 02/03/21 [History] Potassium Chloride [K-Dur] 20 meq PO DAILY 02/03/21 [History] Aspirin EC 325 mg [Ecotrin 325 MG] 1 tab PO DAILY 07/08/22 [History] Docusate Sodium [Stool Softener] 1 cap PO BID PRN 07/08/22 [History] Dulaglutide [Trulicity] 1.5 mg SQ WEEKLY 07/08/22 [History] Lisinopril/Hydrochlorothiazide [Lisinopril-Hctz 20-12.5 mg Tab] 2 tab PO DAILY 07/08/22 [History] Metoprolol Succinate 100 mg [Toprol Xl 100 MG] 1 tab PO BID 07/08/22 [History] Testosterone Cypionate 0.5 ml IM WEEKLY 07/08/22 [History] tadalafiL [Tadalafil] 1 tab PO DAILY 07/08/22 [History] Hx Tetanus, Diphtheria Vaccination/Date Given: No Hx Influenza Vaccination/Date Given: No Hx Pneumococcal Vaccination/Date Given: No Travel Risk - International Travel Have you traveled outside of the country in past 3 weeks: No - Emerging Infectious Disease Are you exhibiting symptoms associated with any current EIDs: No - Review of Systems Constitutional: No Symptoms Eyes: No Symptoms Ears, Nose, & Throat: No Symptoms Respiratory: No Symptoms Cardiac: No Symptoms Abdominal/Gastrointestinal: No Symptoms Genitourinary Symptoms: No Symptoms Musculoskeletal: Other (Left lower extremity achiness primarily behind the left knee in the popliteal fossa) Skin: No Symptoms Neurological: No Symptoms Psychological: No Symptoms Endocrine: No Symptoms Hematologic/Lymphatic: No Symptoms Immunological/Allergic: No Symptoms All Other Systems: Reviewed and Negative - Past Medical History Pertinent Past Medical History: Yes Neurological History: No Pertinent History ENT History: No Pertinent History Cardiac History: High Cholesterol, Hypertension Respiratory History: No Pertinent History Endocrine Medical History: Diabetes Type II Musculoskeletal History: Arthritis GI Medical History: No Pertinent History History: No Pertinent History Psycho-Social History: No Pertinent History Male Reproductive Disorders: No Pertinent History Other Medical History: RIGHT ANKLE SURGERY - Past Surgical History Past Surgical History: No Neuro Surgical History: No Pertinent History Cardiac: No Pertinent History Respiratory: No Pertinent History Gastrointestinal: No Pertinent History Genitourinary: No Pertinent History Musculoskeletal: No Pertinent History Male Surgical History: No Pertinent History - Social History Smoking Status: Former smoker Exposure to second hand smoke: No Drug Use: none Patient Lives Alone: No - Nursing Vital Signs Nursing Vital Signs: Initial Vital Signs Temperature 97.9 F 09/11/24 13:33 Pulse Rate 78 09/11/24 13:33 Respiratory Rate 18 09/11/24 13:33 Blood Pressure 166/85 09/11/24 13:33 O2 Sat by Pulse Oximetry 98 09/11/24 13:33 Pain Scale Pain Intensity 5 - Physical Exam General Appearance: no apparent distress, alert, obese Eye Exam: PERRL/EOMI Ears, Nose, Throat Exam: normal ENT inspection, moist mucous membranes Neck Exam: normal inspection, non-tender, supple, full range of motion Respiratory Exam: airway intact, No chest tenderness, No respiratory distress Gastrointestinal/Abdomen Exam: No tenderness Rectal Exam: not done Back Exam: normal inspection, normal range of motion, No CVA tenderness, No vertebral tenderness Extremity Exam: normal inspection, normal range of motion, pelvis stable Neurologic Exam: alert, oriented x 3, cooperative, infection control specialist II-XII nml as tested, normal mood/affect, nml cerebellar function, nml station & gait, sensation nml Skin Exam: normal color, warm, dry Lymphatic Exam: No adenopathy O2 Delivery: Room Air - Course Nursing assessment & vital signs reviewed: Yes Ordered Tests: Active Orders 24 hr Category Date Time Status BMP Stat Lab 09/11/24 13:44 Ordered CBC W DIFF Stat Lab 09/11/24 13:44 Ordered PROTIME WITH INR Stat Lab 09/11/24 13:44 Ordered Medication Summary Discontinued Medications Generic Name Dose Route Start Last Admin Trade Name Freq PRN Reason Stop Dose Admin Enoxaparin Sodium 160 mg 09/11/24 13:52 Enoxaparin Sodium 80 Mg/0.8 Ml Syringe SQ 09/11/24 13:53 STAT ONE - Progress Progress: unchanged Progress Note: 09/11/24 13:49 My medical decision making and the assignment of low to moderate complexity of this patient's medical issue today is based on review of the patient's past medical history, review of the patient's medication list, reviewed patient drug allergy list, history present illness and physical findings on examination. I also reviewed the out patient, outside facility results of a left lower extremity venous duplex ultrasound. It specifically said that the left lower extremity is positive for DVT. We will order a CBC, BMP, PT/INR. We will then provide the patient with a subcutaneous dose of Lovenox and his initial dose of Eliquis. Doreen, our emergency room nurse, has discussed with the long term nurse regarding the need for this patient to have his prescription picked up and further treatment/management of his DVT as an outpatient. The length of therapy will be determined and managed as an outpatient by the outpatient/long term physician and/or the patient's own outpatient physician. Counseled pt/family regarding: lab results, diagnosis, need for follow-up, rad results (Explained the results of the left lower extremity venous duplex ultrasound.) Medical Desision Making - Risk of complications Low Risk: Low risk of morbidity from additional dx testing or treatment - Departure Departure Disposition: Snf/Penitentiary Clinical Impression: Left leg DVT Condition: Stable Critical Care Time: No Referrals: MARCOS KELLY MD [Primary Care Provider] - Follow up/PCP as directed Additional Instructions: You are to begin your outpatient Eliquis tomorrow morning, 09/12/2024. The initial prescription from the emergency department is for 7 days. You need to continue this treatment as instructed by your long term physician or outpatient physician beyond the 7 days. Prescriptions: Apixaban [Eliquis] 10 mg PO BID 7 Days #28 tablet
[2024-09-11 13:44] VITALS: RESP 18; TEMP 97.9
[2024-09-11] MEDS ORDERED: ENOXAPARIN SODIUM SQ ONE (13:59)
[2024-09-11] MEDS: ENOXAPARIN SODIUM SQ ONE (14:44)
[2024-09-11] MEDS: ELIQUIS 2.5 MG TABLET PO ONE ×2 (14:44)
[2024-09-11 14:45] VITALS: BP 169/86; PULSE 70; O2SAT 97
[2024-09-11 14:53] LABS: Absolute Neutrophil Ct (ANC) 7.97 x10^3/uL (1.78-5.38); BASOPHIL % 0.7 % (0.2-1.2); Basophil (Absolute #) 0.08 x10^3/uL (0.01-0.08); Eosinophil (Absolute #) 0.35 x10^3/uL (0.04-0.54); Hematocrit 46.7 % (40.1-51.0); IMMATURE GRAN # 0.05 x10^3u/L (0.001-0.031); IMMATURE GRAN % 0.4 % (0.001-0.429); Lymphocyte (Absolute #) 2.28 x10^3/uL (1.32-3.57); Lymphocytes % 19.6 % (21.8-53.1); Mean Cell Volume 90.9 fL (79.0-92.2); Mean Corpuscular Hemoglobin 29.2 pg (25.7-32.2); Mean Corpuscular Hgb Concent. 32.1 g/dL (32.3-36.5); Mean Platelet Volume 10.2 fL (9.4-12.4); Monocytes % 7.7 % (5.3-12.2); Neutrophil % 68.6 % (34.0-67.9); Platelet Count 244 x10^3/uL (163-337); Red Blood Count 5.14 x10^6/uL (4.63-6.08); Red Cell Distribution Width 13.3 % (11.6-14.4); White Blood Count 11.6 x10^3/uL (4.23-9.07)
[2024-09-11 15:06] LABS: ANION GAP 14.2 MEQ/L (5-15); Calcium 9.4 mg/dL (8.4-10.2); Creatinine 1 1.07 mg/dL (0.66-1.25)
[2024-09-11 15:07] LABS: INR 0.96 (0.8-3.0); PROTIME 10.5 SECONDS (9.4-12.5)
== END 2024-09-11 14:59 | disposition home or self-care (01) ==
LOC: ED 13:17
DX: I82.402 Acute embolism and thrombosis of unspecified deep veins of left lower extremity (principal); I10 Essential (primary) hypertension; E11.9 Type 2 diabetes mellitus without complications; E78.5 Hyperlipidemia, unspecified; Z79.01 Long term (current) use of anticoagulants; Z79.84 Long term (current) use of oral hypoglycemic drugs; Z79.85 Long-term (current) use of injectable non-insulin antidiabetic drugs; Z79.899 Other long term (current) drug therapy
CPT/HCPCS: 36415; 80048; 85025; 85610; 99283; J1650; A9270-GY